=== PATIENT | female | born 1965 | race Caucasian/White ===

== ENCOUNTER 2019-11-24 00:42 | Emergency (ER) | payer SELFPAY ==
--- NOTE | 2019-11-24 04:47 | RADIOLOGY REPORT (SQ) ---
CLINICAL INDICATION: pain. . TECHNIQUE: Single view(s) were obtained of the right hip. AP pelvis COMPARISON: None. FINDINGS: No acute displaced fracture is identified of the hip. Alignment appears anatomic. Osteoarthritis. Surrounding soft tissues are unremarkable. IMPRESSION: No evidence of acute displaced fracture of the hip.
[2019-11-24] MEDS ORDERED: PREDNISONE 20 MG TABLET PO ONE (05:27)
[2019-11-24] MEDS ORDERED: HYDROCODONE/ACETAMINOPHEN 5-325 MG TABLET PO ONE (05:27)
[2019-11-24] MEDS ORDERED: HYDROCODONE/ACETAMINOPHEN 5-325 MG (6 TAB/ER DISP) PO PRN (05:27)
[2019-11-24 05:49] VITALS: BP 144/87
--- NOTE | 2019-11-24 06:13 | ER Document Report ---
Entered by BEN NASCIMENTO SCRIBE 11/24/19 0527 Acting as scribe for:ESTELITA VENTURA IV, MD ED General - General Chief Complaint: Hip Pain Stated Complaint: TAILBONE PAIN Time Seen by Provider: 11/24/19 05:12 Primary Care Provider: PAULA YOUNG MD [HONORARY] - Follow up as needed Mode of Arrival: Ambulatory Information source: Patient Notes: This 54 year old female patient presents to the ED today with complaints of right buttock pain that radiates down her RLE for the past x1.5 months. Patient states that the pain is worse with ambulation. Denies urinary or fecal incontinence. Denies paraesthesia to genital or perianal areas. - Related Data Allergies/Adverse Reactions: No Known Allergies Allergy (Unverified 11/24/19 01:45) Past Medical History - General Information source: Patient - Social History Smoking Status: Current Every Day Smoker Chew tobacco use (# tins/day): No Smoking Education Provided: No Frequency of alcohol use: None Drug Abuse: None Family History: Reviewed & Not Pertinent Patient has suicidal ideation: No Patient has homicidal ideation: No Review of Systems - Review of Systems Constitutional: No symptoms reported EENT: No symptoms reported Cardiovascular: No symptoms reported Respiratory: No symptoms reported Gastrointestinal: See HPI. denies: Fecal incontinence Genitourinary: See HPI. denies: Incontinence Female Genitourinary: No symptoms reported Musculoskeletal: See HPI Skin: No symptoms reported Hematologic/Lymphatic: No symptoms reported Neurological/Psychological: No symptoms reported -: Yes All other systems reviewed and negative Physical Exam - Vital signs Vitals: Temp Pulse Resp BP Pulse Ox 98.4 F 80 22 H 160/94 H 99 11/24/19 01:14 11/24/19 01:14 11/24/19 01:14 11/24/19 01:14 11/24/19 01:14 - General General appearance: Alert In distress: None - HEENT Head: Normocephalic, Atraumatic Eyes: Normal Pupils: PERRL - Respiratory Respiratory status: No respiratory distress Chest status: Nontender Breath sounds: Normal Chest palpation: Normal - Cardiovascular Rhythm: Regular Heart sounds: Normal auscultation Murmur: No Friction rub: No Gallop: None auscultated - Abdominal Inspection: Normal, Other - No pulsatile masses or aortic bruit Distension: No distension Bowel sounds: Normal Tenderness: Nontender - Abdomen soft Organomegaly: No organomegaly - Back Back: Normal, Nontender - Extremities General upper extremity: Normal inspection General lower extremity: Other - Positive straight leg raise on the right at 60 degrees - Neurological Neuro grossly intact: Yes Orientation: AAOx4 Willam Coma Scale Eye Opening: Spontaneous [place]am Coma Scale Verbal: Oriented [place] Coma Scale Motor: Obeys Commands [place] Coma Scale Total: 15 - Psychological Associated symptoms: Normal affect, Normal mood - Skin Skin Temperature: Warm Skin Moisture: Dry Skin Color: Normal Course - Re-evaluation Re-evalutation: 11/24/19 05:28 Results of ED MSE discussed with patient and patient's daughter. All questions were answered prior to discharge. Emergency signs and symptoms, reasons to return to the emergency department discussed with patient and patient's daughter. - Vital Signs Vital signs: Temp Pulse Resp BP Pulse Ox 97.5 F 65 14 144/87 H 99 11/24/19 05:45 11/24/19 05:45 11/24/19 05:45 11/24/19 05:45 11/24/19 05:45 - Diagnostic Test Radiology reviewed: Reports reviewed Discharge - Discharge Clinical Impression: Sciatica Qualifiers: Laterality: right Qualified Code(s): M54.31 - Sciatica, right side Condition: Stable Disposition: HOME, SELF-CARE Additional Instructions: Return to the Emergency Department without delay if any worse. HOME CARE INSTRUCTIONS & INFORMATION: Thank you for choosing us for your medical needs. We hope you're satisfied with the care you received. After you leave, you must properly care for your problem and, at the same time, observe its progress. Any condition can change. Some illnesses can change rapidly over hours or days. If your condition worsens, return to the Emergency Department or see your physician promptly. ABOUT YOUR X-RAYS AND EKG'S: If you had an EKG or X-rays taken, they have been read by the Emergency Physician. The X-rays and EKG's will also be read by a Radiologist or Ecological Risk Assessor within 24 hours. If discrepancies are noted, you will be notified by telephone. Please be certain the ED has a correct telephone number & address where you can be reached. Also, realize that some fractures or abnormalities do not show up on initial X-rays. If your symptoms continue, see your physician. ABOUT YOUR LABORATORY TEST: If you had laboratory tests, the results have been reviewed by the Emergency Physician. Some test results (for example cultures) may not be available for several days. You will be contacted if any test result shows you need additional treatment. Please be certain the ED has a correct telephone number and address where you can be reached. ABOUT YOUR MEDICATIONS: You will receive instructions on how to take your medicine on the prescription label you receive. Additional information may be provided by the Pharmacy. If you have questions afterwards, call the ED for clarification or further instructions. Some prescribed medications may cause drowsiness. Do not perform tasks such as driving a car or operating machinery without consulting your Pharmacist. If you feel you need a refill of pain medication, your condition will need re-evaluation. Please do not call for a refill of any medication. ABOUT YOUR SIGNATURE: Signature of this document acknowledges to followin. Understanding that you received emergency treatment and that you may be released before al medical problems are known or treated. Please be certain the ED has a correct phone number & address where you can be reached. 2. Acknowledgement that you will arrange for follow-up care as recommended. 3. Authorization for the Emergency Physician to provide information to your follow-up Physician in order to maximize your care. AT ANY TIME, IF YOUR SYMPTOMS CHANGE SIGNIFICANTLY OR WORSEN OR YOU DEVELOP NEW SYMPTOMS, RETURN TO THE EMERGENCY DEPARTMENT IMMEDIATELY FOR RE-EVALUATION. OUR GOAL IS TO PROVIDE EXCELLENT MEDICAL CARE! WE HOPE THAT WE HAVE MET YOUR EXPECTATIONS DURING YOUR EMERGENCY DEPARTMENT VISIT AND THAT YOU FEEL YOU HAVE RECEIVED EXCELLENT CARE! Sciatica Your symptoms suggest "sciatica." The pain of sciatica typically radiates down the leg. Numbness in the foot or calf may also occur. Sciatica is caused by irritation of the sciatic nerve or its branches. The irritation can be due to a herniated disk in the spine, swelling and inflammation in the muscles surrounding the sciatic nerve, or direct injury of the nerve itself. Most cases of sciatica will resolve with medical treatment. Bed rest is usually recommended initially. Surgery is only necessary when the condition will not improve with rest and antiinflammatory medication. Muscle relaxers are often given if muscle soreness is present. A CAT scan of the back may be performed if a herniated disk is suspected. Re-examination is necessary if you develop increasing numbness, localized weakness in the foot or ankle, or if the pain does not respond to rest. Prescriptions: Hydrocodone/Acetaminophen [Marion 5-325 mg Tablet] 1 tab PO Q6HP PRN #12 tablet PRN Reason: pain Prednisone [Deltasone 20 mg Tablet] 60 mg PO DAILY 4 Days #12 tablet Referrals: PAULA YOUNG MD [HONORARY] - Follow up as needed I personally performed the services described in the documentation, reviewed and edited the documentation which was dictated to the scribe in my presence, and it accurately records my words and actions.
== END 2019-11-24 05:49 | disposition home or self-care (01) ==
LOC: ER 00:42
DX: M54.31 Sciatica, right side (principal); F17.200 Nicotine dependence, unspecified, uncomplicated
CPT/HCPCS: 99283; 73502; J7512

== ENCOUNTER 2019-12-03 15:16 | Emergency (ER) | payer SELFPAY ==
[2019-12-03] MEDS ORDERED: KETOROLAC TROMETHAMINE 60 MG/2 ML SDV IM ONE ×2 (16:43→20:46)
[2019-12-03] MEDS ORDERED: NORMAL SALINE 1000 ML 1,000 ML IV ONE (16:45)
--- NOTE | 2019-12-03 16:48 | ER Document Report ---
ED Medical Screen (RME) - General Chief Complaint: Low Back Pain Stated Complaint: URINARY ISSUE Time Seen by Provider: 12/03/19 16:38 Notes: Patient is a 54-year-old female who presents the emergency department with the chief complaint of low back pain. Patient states that her symptoms started on Tuesday. She also states that she has a sharp, stabbing pain when she urinates. Patient has been on steroids and pain medication and states that her symptoms have only gotten worse after finishing her steroids. Last dose of steroids was on . The next day she ended up having urinary symptoms. Exam: Tenderness to left lower back. I have greeted and performed a rapid initial assessment of this patient. A comprehensive ED assessment and evaluation of the patient, analysis of test results and completion of medical decision making process will be conducted by an additional ED providers. - Related Data Allergies/Adverse Reactions: No Known Allergies Allergy (Verified 12/03/19 16:37) Past Medical History - Social History Chew tobacco use (# tins/day): No Frequency of alcohol use: None Drug Abuse: None Physical Exam - Vital signs Vitals: Temp Pulse Resp BP Pulse Ox 99.0 F 103 H 16 155/97 H 96 12/03/19 15:22 12/03/19 15:22 12/03/19 15:22 12/03/19 15:22 12/03/19 15:22 Course - Vital Signs Vital signs: Temp Pulse Resp BP Pulse Ox 99.0 F 103 H 16 155/97 H 96 12/03/19 15:22 12/03/19 15:22 12/03/19 15:22 12/03/19 15:22 12/03/19 15:22
[2019-12-03 17:02] LABS: APPEARANCE,URINE CLEAR; BILIRUBIN,URINE NEGATIVE (NEGATIVE); COLOR,URINE STRAW; GLUCOSE, URINE NEGATIVE (NEGATIVE); KETONES,URINE NEGATIVE (NEGATIVE); LEUKOCYTE ESTERASE,URINE MODERATE (NEGATIVE); NITRITE,URINE NEGATIVE (NEGATIVE); PROTEIN,URINE NEGATIVE (NEGATIVE); URINE SPECIFIC GRAVITY 1.004; UROBILINOGEN,URINE NEGATIVE mg/dL (<2.0)
[2019-12-03 17:20] LABS: ABSOLUTE EOSINOPHILS # (AUTO) 0.1 10^3/uL (0.0-0.6); ABSOLUTE LYMPHOCYTES (AUTO) 2.4 10^3/uL (0.5-4.7); ABSOLUTE MONOCYTES (AUTO) 0.8 10^3/uL (0.1-1.4); ABSOLUTE NEUT (AUTO) 8.9 10^3/uL (1.7-8.2); BASOPHILS % (AUTO) 0.4 % (0-2); EOSINOPHILS % (AUTO) 1.2 % (0-6); HEMATOCRIT 43.8 % (36.0-47.0); HEMOGLOBIN 14.9 g/dL (12.0-15.5); LYMPHOCYTES % (AUTO) 19.3 % (13-45); MEAN CORPUSCULAR HEMOGLOBIN 32.1 pg (27.0-33.4); MEAN CORPUSCULAR VOLUME 94 fl (80-97); MONOCYTES % (AUTO) 6.6 % (3-13); PLATELET COUNT 421 10^3/uL (150-450); RED BLOOD COUNT 4.65 10^6/uL (3.72-5.28); RED CELL DISTRIBUTION WIDTH 14.1 % (11.5-14.0); SEGMENTED NEUTROPHILS % (AUTO) 72.5 % (42-78); TOTAL CELLS COUNTED % (AUTO) 100 %; WHITE BLOOD COUNT 12.3 10^3/uL (4.0-10.5)
[2019-12-03 17:38] LABS: ALBUMIN 4.4 g/dL (3.5-5.0); ALKALINE PHOSPHATASE 109 U/L (38-126); ANION GAP 8 (5-19); ASPARTATE AMINO TRANSFERASE 21 U/L (14-36); BILIRUBIN,TOTAL 0.7 mg/dL (0.2-1.3); BLOOD UREA NITROGEN 8 mg/dL (7-20); CALCIUM 9.8 mg/dL (8.4-10.2); CARBON DIOXIDE 24 mmol/L (22-30); CHLORIDE 104 mmol/L (98-107); GLUCOSE 117 mg/dL (75-110); POTASSIUM 4.4 mmol/L (3.6-5.0); TOTAL PROTEIN 7.6 g/dL (6.3-8.2)
--- NOTE | 2019-12-03 17:41 | RADIOLOGY REPORT (SQ) ---
EXAM DESCRIPTION: CT ABD/PELVIS NO ORAL OR IV IMAGES COMPLETED DATE/TIME: 12/03/2019 5:06 pm REASON FOR STUDY: left flank/low back pain COMPARISON: 06/29/2009 TECHNIQUE: CT scan of the abdomen and pelvis performed without intravenous or oral contrast. Images reviewed with lung, soft tissue, and bone windows. Reconstructed coronal and sagittal MPR images revi ewed. All images stored on PACS. All CT scanners at this facility use dose modulation, iterative reconstruction, and/or weight based d osing when appropriate to reduce radiation dose to as low as reasonably achievable (ALARA). [facility]: Dose Right [facility]: CareDose [facility]: Dose Right [facility]: Teradose 4D [facility]: Smart Womai RADIATION DOSE: CT Rad equipment meets quality standard of care and radiation dose reduction techniq ues were employed. CTDIvol: 8.3 mGy. DLP: 502 mGy-cm. LIMITATIONS: None. FINDINGS: LOWER CHEST: Calcified granuloma left lower lobe, probably secondary to prior granulomato us disease. Very small pericardial effusion noted anteriorly. NON-CONTRASTED LIVER, SPLEEN, ADRENALS: Very small splenule, normal anatomic variant. Evaluation li mited by lack of IV contrast. No identified significant masses. PANCREAS: No masses. No peripancreatic inflammatory changes. GALLBLADDER: No identified stones by CT criteria. No inflammatory changes to suggest cholecystitis. RIGHT KIDNEY AND URETER: No suspicious masses. Assessment limited by lack of IV contrast. No signif icant calcifications. No hydronephrosis or hydroureter. LEFT KIDNEY AND URETER: No suspicious masses. Assessment limited by lack of IV contrast. No signifi cant calcifications. No hydronephrosis or hydroureter. AORTA AND RETROPERITONEUM: No aneurysm. No retroperitoneal masses or adenopathy. BOWEL AND PERITONEAL CAVITY: No obvious masses or inflammatory changes. No free fluid. APPENDIX: Normal. PELVIS, BLADDER, AND ABDOMINAL WALL: Stable small phleboliths in the pelvic region. As on the previ ous examination, the endometrial cavity is prominent in appearance and measures 2.6 cm in AP diameter . No free fluid. Bladder normal. BONES: The osseous structures are stable in appearance. OTHER: A prominent 1.7 cm in diameter lymph node lies between the left proximal common iliac artery and psoas muscle, axial image 62, series 3. Prominent left external chain iliac lymph nodes also not ed, axial image 83, series 3. IMPRESSION: 1. No evidence for hydronephrosis, hydroureter or renal calculi. 2. A prominent left common iliac chain lymph node and left external iliac chain lymph nodes. These findings are new since the previous examination dated 06/29/2009. Correlation suggested. 3. As on the prior examination dated 06/29/2009, the endometrial cavity is prominent in appearance. C orrelation with the patient's history suggested. COMMENT: Quality ID # [id number]: Final reports with documentation of one or more dose reduction techniques (e.g., Automated exposure control, adjustment of the mA and/or kV according to patient size, use of iterative reconstruction technique) TECHNICAL DOCUMENTATION: JOB ID: [id number] 2010 [employer]- All Rights Reserved Reading location - IP/workstation name: [email or web address]
--- NOTE | 2019-12-03 20:53 | ER Document Report ---
ED General - General Chief Complaint: Low Back Pain Stated Complaint: URINARY ISSUE Time Seen by Provider: 12/03/19 16:38 - HPI Notes: Chief complaint: Pain over coccyx and constipation History of present illness: 54-year-old postmenopausal female seen here approximately 10 days ago by another provider in the emergency department for low back pain with no history of trauma and was treated with oral steroids and narcotic analgesic. This provided transient relief of her discomfort. She is back in today saying that pain is returning. She describes this as principally over the area of the coccyx radiating intermittently into both hips. This is aggravated by straining to have a bowel movement. She notes that she has been chronically constipated for several years and this is gradually getting worse. She is not on any prescription medicine for this and has not seen a physician in many years. She is never had a colonoscopy. Her weight is stable. She denies any skin rashes. She denies any fever or chills. She has had some intermittent dysuria. She denies any acute motor symptoms. She denies any urinary incontinence. Patient denies any acute injury to her coccyx or lower back area. She specifically denies falling. She denies any past history of back problems or injuries. Patient is accompanied here today by her daughter. I have reviewed all the notes from the recent ER visit here. Patient is a 1 pack/day smoker. She denies alcohol consumption. 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 HENT: Negative for sore throat. Eyes: Negative for visual changes. Cardiovascular: Negative for chest pain. Respiratory: Negative for shortness of breath. Gastrointestinal: As per history of present illness. Genitourinary: As per history of present illness. Musculoskeletal: As per history of present illness. Skin: Negative for rash. Neurological: Negative for headaches, weakness or numbness. 10 point ROS negative except as marked above and in HPI. Physical Exam - Vital signs Vitals: Temp Pulse Resp BP Pulse Ox 99.0 F 103 H 16 155/97 H 96 12/03/19 15:22 12/03/19 15:22 12/03/19 15:22 12/03/19 15:22 12/03/19 15:22 - Notes Notes: GENERAL: Slender female approximately stated age who appears moderately uncomfortable. SKIN: Good turgor no rashes. HEAD: Normocephalic atraumatic. EYES: PERRLA. EOMI. Conjunctivae and sclerae clear. EARS: CANALS AND TMS CLEAR. NOSE: CLEAR. MOUTH: Moist mucosa. Good dentition. No stridor or edema. No drooling. NECK: Supple. No masses or thyromegaly. No adenopathy. Carotids 2+ without bruits. No JVD. BACK: Symmetrical with moderate tenderness over the area of the coccyx. There is no crepitus or step-off. There is no visible or palpable skin abscess on careful palpation of this area. CHEST: Respirations unlabored. Breath sounds clear and symmetrical. HEART: Regular rhythm. No murmur gallop or rub. ABDOMEN: Soft nontender without masses, organomegaly or rebound. Bowel sounds normally active. No bruits. GENITALIA: Deferred. EXTREMITIES: No edema. No calf tenderness. Cap refill less than 1.5 seconds. Dorsalis pedis and posterior tibial pulses 3+ and symmetrical. NEUROLOGICAL: GCS 15. Alert and oriented x3. Normal gait. Fluent speech. C ranial nerves II through XII intact. Sensorimotor and cerebellar normal. Normal tone. PSYCHIATRIC: Slightly flat affect. Course - Re-evaluation Re-evalutation: 12/03/19 20:58 I have given the patient some IM Toradol. Will put her on some oral indomethacin with food at home and oral MiraLAX. She needs to establish care with a primary care physician. She needs a colonoscopy which I can arrange as an outpatient. She may also need follow-up with a fire boat engineer. Current physical findings are most consistent with coccygodynia. She also has evidence of urinary tract infection. We will treat this with some oral Keflex. 12/03/19 21:00 12/03/19 21:07 Findings, clinical impression and plan of treatment have been discussed with patient/family. Understanding of current findings and recommendations has been acknowledged by them and there is agreement regarding disposition and follow-up. - Vital Signs Vital signs: Temp Pulse Resp BP Pulse Ox 99.0 F 103 H 16 155/97 H 96 12/03/19 15:22 12/03/19 15:22 12/03/19 15:22 12/03/19 15:22 12/03/19 15:22 - Laboratory Result Diagrams: 12/03/19 16:57 12/03/19 16:57 Laboratory results interpreted by me: 12/03/19 12/03/19 12/03/19 15:46 16:57 16:57 WBC 12.3 H RDW 14.1 H Absolute Neuts (auto) 8.9 H Sodium 135.7 L Glucose 117 H Ur Leukocyte Esterase MODERATE H - Diagnostic Test Radiology reviewed: Reports reviewed - Noncontrast CT abdomen/pelvis: Mild prominence of endometrial cavity and patient has some minimally enlarged left iliac lymph nodes present. No other significant abnormalities. Discharge - Discharge Clinical Impression: Coccydynia, Chronic constipation Condition: Stable Disposition: HOME, SELF-CARE Additional Instructions: Coccyx Injury Your painful tailbone may be due to an injury to the `coccyx', the bone at the end of the spine. While quite painful, this injury usually isn't serious. In general, this injury is treated with medication and resting for a few days. Once you are active again, you may find that a `donut' seat cushion (often used after delivering a baby) helps you sit more comfortably. Pain may be worsened by constipation. Expect about three or four weeks before you are painfree. You should take prescribed medication and follow-up with referral physician . You need to have further evaluation including a colonoscopy as we have discussed. Additionally you have evidence of a bladder infection today. Medications prescribed today include a medicine that is helpful for pain and inflammation, and medicine to improve your bowel movements and an antibiotic to treat your bladder infection. Follow-up with referral physician as discussed. You may return here for new or worsening symptoms as needed. Prescriptions: Indomethacin 50 mg PO TID 10 Days #30 capsule Cephalexin Monohydrate [Keflex 500 mg Capsule] 500 mg PO Q6H 5 Days capsule Polyethylene Glycol 3350 [Miralax] 1 cap PO DAILY #527 powder Referrals: [facility] [Provider Group] - Follow up as needed MIRYAM GILBERT MD [ACTIVE STAFF] - Follow up as needed
[2019-12-03 21:34] VITALS: BP 136/79
== END 2019-12-03 21:39 | disposition home or self-care (01) ==
LOC: ER 15:16
DX: M53.3 Sacrococcygeal disorders, not elsewhere classified (principal); K59.09 Other constipation; N39.0 Urinary tract infection, site not specified; R30.0 Dysuria; F17.200 Nicotine dependence, unspecified, uncomplicated
CPT/HCPCS: 99284; 96372; 36415; 87086; 85025; 80053; 81001; 74176; J1885

== ENCOUNTER 2020-05-05 08:09 | Emergency (ER) | payer MEDICAID, OTHER ==
[2020-05-05] MEDS ORDERED: RINGERS SOLUTION,LACTATED 1,000 ML IV ONE ×2 (08:51→10:45)
[2020-05-05] MEDS ORDERED: ONDANSETRON HCL INJ/PF 4 MG/2 ML SDV IV ONE (08:52)
--- NOTE | 2020-05-05 09:01 | ER Document Report ---
ED General - General Chief Complaint: General Weakness Stated Complaint: WEAKNESS Time Seen by Provider: 05/05/20 08:37 Primary Care Provider: HUNTER ALARCON MD [Primary Care Provider] - Follow up as needed Mode of Arrival: Wheelchair Information source: Patient, Relative Notes: Patient is a 54-year-old female is brought in emergency room by her daughter are being sent here by the oncology radiologist for weakness. Patient has a recently diagnosed history of cervical cancer stage III diagnosed in January 2020 started chemo and radiation treatments in March 2020. Patient went to [place] and saw oncologist but the name of Dr. Albert and then was referred to Dr. Covarrubias who was the one that ultimately recommended chemo and radiation treatments. Patient and daughter state that she is not able to eat or drink anything for the past several days. She denies have any current pain. Patient denies any shortness of breath or chest discomfort. She has had multiple bouts of diarrhea. She is here for weakness evaluation. Patient does smoke. TRAVEL OUTSIDE OF THE [place] IN LAST 30 DAYS: No - HPI Onset: Last week Onset/Duration: Gradual Quality of pain: Achy Severity: Moderate Pain Level: 3 Associated symptoms: denies: Nonproductive cough, Productive cough, Fever - Related Data Allergies/Adverse Reactions: cephalexin [From Keflex] Allergy (Verified 05/05/20 08:32) hydrocodone Allergy (Verified 05/05/20 08:32) acetaminophen [From Tylenol] Adverse Reaction (Verified 05/05/20 08:32) Past Medical History - General Information source: Patient, Relative - Social History Smoking Status: Current Every Day Smoker Cigarette use (# per day): Yes Smoking Education Provided: Yes Frequency of alcohol use: None Drug Abuse: None Lives with: Family Family History: Reviewed & Not Pertinent GI Medical History: Denies: Hx Gastritis, Hx Ulcer, Hx Colonoscopy Past Surgical History: Reports: Hx Section Review of Systems - Review of Systems Constitutional: See HPI, Chills, Malaise, Weakness EENT: No symptoms reported Cardiovascular: No symptoms reported Respiratory: No symptoms reported Gastrointestinal: See HPI, Diarrhea, Nausea, Vomiting Genitourinary: No symptoms reported Female Genitourinary: No symptoms reported Musculoskeletal: See HPI, Muscle pain Skin: No symptoms reported Hematologic/Lymphatic: No symptoms reported Neurological/Psychological: No symptoms reported -: Yes All other systems reviewed and negative Physical Exam - Vital signs Vitals: Temp Pulse Resp BP Pulse Ox 97.7 F 69 32 H 136/76 H 97 05/05/20 08:20 05/05/20 08:20 05/05/20 08:20 05/05/20 08:20 05/05/20 08:20 Interpretation: Normal, Hypertensive, Tachypneic - Notes Notes: PHYSICAL EXAMINATION: GENERAL: Patient is a well-nourished well-developed 54-year-old female no apparent distress but appears acutely ill. Patient displays moderate amount of systemic tremors on examination. HEAD: Atraumatic, normocephalic. EYES: Pupils equal round and reactive to light, extraocular movements intact, conjunctiva are normal. ENT: Examination upper airway show nasal mucosa be dry no frontal or maxillary sinus tenderness to palpation. Examination of the oropharynx shows moderate dryness throughout the entire oral mucosa. NECK: Normal range of motion, supple without lymphadenopathy LUNGS: Breath sounds clear to auscultation bilaterally and equal. No wheezes rales or rhonchi. HEART: Regular rate and rhythm without murmurs ABDOMEN: Examination patient's abdomen shows bowel sounds to be present all 4 quads. In the supine position patient's abdominal examination shows no tenderness to palpation in this position. Female : deferred Musculoskeletal: Normal range of motion, no pitting or edema. No cyanosis. NEUROLOGICAL: Normal speech, normal gait. Normal sensory, motor exams PSYCH: Normal mood, normal affect. SKIN: Decreased turgor response Course - Re-evaluation Re-evalutation: 05/05/20 15:40 I had originally discussed the case with Dr. Uribe who suggested since patient had allergies to the Rocephin/cephalosporins that we should go ahead with Levaquin x1. Given that patient's labs were depleted in the magnesium, potassium, calcium as well as a positive urinary tract infection and a low white count I contacted Dr. Cruz with Dr. Buchanan office of oncology. She was very helpful in guiding and suggested that if patient looked like she was improving that she would be better off at home because of her leukopenia. Patient r esponded very well to the 2 L bolus of LR as well as the magnesium and potassium supplement. Patient perked right up after the fluids went in and we feel that patient is safe for discharge home. Her daughter is here with her and agrees with this plan because he gets her out of the hospital setting. Dr. Cruz informed me that she would have her office contact her tomorrow to set up an appointment within the next 2 weeks. Patient has been instructed to stay ahead of her nausea and to keep fluids going. She is currently on Zofran and promethazine. The daughter states that she has been on Compazine as well which does not help. She will follow up with Dr. Covarrubias as described above. She has been also informed that should she start getting worse to return to ER for reevaluation. I once again counseled Dr. Uribe about patient's discharge antibiotic and he believes that the Cipro was her best option at this point so we will place her on 500 twice daily for 7 days. - Vital Signs Vital signs: Temp Pulse Resp BP Pulse Ox 97.7 F 69 17 136/76 H 99 05/05/20 08:20 05/05/20 08:20 05/05/20 11:13 05/05/20 08:20 05/05/20 11:13 - Laboratory Results Result Diagrams: 05/05/20 09:21 05/05/20 09:21 Laboratory Results Interpreted: 05/05/20 05/05/20 05/05/20 09:21 09:21 09:21 WBC 2.0 L RBC 2.67 L Hgb 9.2 L Hct 25.3 L MCH 34.6 H MCHC 36.4 H RDW 14.4 H Plt Count 68 L Seg Neuts % (Manual) 88 H Lymphocytes % (Manual) 8 L Abs Lymphs (Manual) 0.2 L Potassium 3.3 L BUN 21 H Est GFR ( Amer) 58 L Est GFR (MDRD) Non-Af 48 L Calcium 7.2 L Magnesium 0.7 L* Urine Protein 100 H Urine Glucose (UA) 50 H Urine Ketones 20 H Urine Blood SMALL H Urine Urobilinogen 2.0 H Ur Leukocyte Esterase LARGE H Critical Laboratory Results Reviewed: Yes Attending or Supervising Physician who Reviewed Labs: DESHAWN URIBE - low mag,ca,potassium, ua - Radiology Results Critical Radiology Results Reviewed: No Critical Results - EKG Interpretation by Me EKG shows normal: Sinus rhythm Rate: Normal Rhythm: NSR Discharge - Discharge Clinical Impression: Hypomagnesemia, Hypokalemia, Hypocalcemia Urinary tract infection Qualifiers: Urinary tract infection type: site unspecified Hematuria presence: without hematuria Qualified Code(s): N39.0 - Urinary tract infection, site not specified Leukopenia Qualifiers: Leukopenia type: neutropenia Neutropenia type: secondary to cancer chemotherapy Qualified Code(s): D70.1 - Agranulocytosis secondary to cancer chemotherapy; T45.1X5A - Adverse effect of antineoplastic and immunosuppressive drugs, initial encounter Condition: Stable Disposition: HOME, SELF-CARE Instructions: Urinary Tract Infection ([facility]), Hypokalemia ([facility]) Additional Instructions: Home and rest. As we discussed Dr. Covarrubias office will contact you in the next day or so set you up an appointment for approximately 2 weeks. As we discussed try to stay ahead of your nausea by taking your medication early and try to keep the fluids going. Do not just drink water because that helps washout your potassium and magnesium so you should drink other things included and try to maintain that diet as best you can. However should you spike a fever or you have worsening can addition her symptoms return to ER for reevaluation. Prescriptions: Ciprofloxacin HCl [Cipro 500 mg Tablet] 500 mg PO BID #10 tablet Promethazine HCl 12.5 mg PO Q6 PRN #20 tablet PRN Reason: Referrals: HUNTER ALARCON MD [Primary Care Provider] - Follow up as needed MOISES COVARRUBIAS MD [ACTIVE STAFF] - Follow up as needed
[2020-05-05 09:50] LABS: HEMATOCRIT 25.3 % (36.0-47.0); HEMOGLOBIN 9.2 g/dL (12.0-15.5); MEAN CORPUSCULAR HEMOGLOBIN 34.6 pg (27.0-33.4); MEAN CORPUSCULAR HGB CONC 36.4 g/dL (32.0-36.0); MEAN CORPUSCULAR VOLUME 95 fl (80-97); RED BLOOD COUNT 2.67 10^6/uL (3.72-5.28); RED CELL DISTRIBUTION WIDTH 14.4 % (11.5-14.0)
--- NOTE | 2020-05-05 09:53 | RADIOLOGY REPORT (SQ) ---
EXAM DESCRIPTION: CHEST SINGLE VIEW IMAGES COMPLETED DATE/TIME: 05/05/2020 9:35 am REASON FOR STUDY: weakness COMPARISON: None. FINDINGS: One-view chest AP portable upright. Lungs are slightly hyperinflated but generally clear allowing for calcified granuloma in the left bas e. No pneumothorax. Normal cardiomediastinal silhouette. Intact bones. TECHNICAL DOCUMENTATION: JOB ID: [id number] Reading location - IP/workstation name: [email or web address]
[2020-05-05 10:09] LABS: ALBUMIN 3.9 g/dL (3.5-5.0); ALKALINE PHOSPHATASE 89 U/L (38-126); ANION GAP 10 (5-19); ASPARTATE AMINO TRANSFERASE 29 U/L (14-36); BILIRUBIN,DIRECT 0.2 mg/dL (0.0-0.4); BILIRUBIN,TOTAL 0.9 mg/dL (0.2-1.3); BLOOD UREA NITROGEN 21 mg/dL (7-20); CALCIUM 7.2 mg/dL (8.4-10.2); CARBON DIOXIDE 28 mmol/L (22-30); CHLORIDE 99 mmol/L (98-107); GLUCOSE 101 mg/dL (75-110); POTASSIUM 3.3 mmol/L (3.6-5.0); TOTAL PROTEIN 6.6 g/dL (6.3-8.2)
[2020-05-05 10:27] LABS: ABSOLUTE LYMPHOCYTES# (MANUAL) 0.2 10^3/uL (0.5-4.7); ABSOLUTE MONOCYTES # (MANUAL) 0.1 10^3/uL (0.1-1.4); BASOPHILS % (MANUAL) 0 % (0-2); EOSINOPHILS % (MANUAL) 0 % (0-6); LYMPHOCYTES % (MANUAL) 8 % (13-45); MONOCYTES % (MANUAL) 4 % (3-13); SEGMENTED NEUTROPHILS % (MAN) 88 % (42-78); TOTAL CELLS COUNTED 100
[2020-05-05 10:37] LABS: ANISOCYTOSIS SLIGHT; POLYCHROMASIA SLIGHT
[2020-05-05] MEDS ORDERED: POTASSI CL 20 MEQ/50 ML RIDER 20 MEQ/50 ML RTUPB IV ONE (10:37)
[2020-05-05 10:38] LABS: OVALOCYTES SLIGHT; PLATELET COMMENT DECREASED
[2020-05-05 10:39] LABS: PLATELET COUNT 68 10^3/uL (150-450)
[2020-05-05 10:44] LABS: APPEARANCE,URINE SLIGHTLY-CLOUDY; BILIRUBIN,URINE NEGATIVE (NEGATIVE); COLOR,URINE YELLOW; GLUCOSE, URINE 50 mg/dL (NEGATIVE); KETONES,URINE 20 mg/dL (NEGATIVE); LEUKOCYTE ESTERASE,URINE LARGE (NEGATIVE); NITRITE,URINE NEGATIVE (NEGATIVE); PROTEIN,URINE 100 mg/dL (NEGATIVE)
[2020-05-05] MEDS ORDERED: POTASSIUM CHLORIDE 10 MEQ TABLET.ER PO ONE (10:52)
[2020-05-05] MEDS ORDERED: LEVOFLOXACIN 750 MG/D5W RTU 750 MG/150 ML RTUPB IV ONE (11:03)
[2020-05-05] MEDS: MAGNESIUM SULFATE/D5W 1 GM/100 ML RTUPB IV SCH ×2 (11:06→12:34)
--- NOTE | 2020-05-05 12:41 | EKG REPORT ---
SEVERITY:- NORMAL ECG - SINUS RHYTHM : Confirmed by: Kvein Stephen MD 05-May-2020 12:41:05
[2020-05-05] MEDS ORDERED: PANTOPRAZOLE SODIUM 40 MG VIAL IV ONE (13:40)
[2020-05-05] MEDS ORDERED: PROMETHAZINE HCL INJ 25 MG/1 ML VIAL IV ONE (16:07)
[2020-05-05 16:53] VITALS: BP 153/81
[2020-05-06 13:01] LABS: PATH REVIEW PATHOLOGIST REVIEWED
== END 2020-05-05 16:28 | disposition home or self-care (01) ==
LOC: ER 08:09
DX: E83.42 Hypomagnesemia (principal); E87.6 Hypokalemia; E83.51 Hypocalcemia; D70.1 Agranulocytosis secondary to cancer chemotherapy; N39.0 Urinary tract infection, site not specified; R53.1 Weakness; C53.9 Malignant neoplasm of cervix uteri, unspecified; R11.2 Nausea with vomiting, unspecified; R19.7 Diarrhea, unspecified; F17.210 Nicotine dependence, cigarettes, uncomplicated; Z79.899 Other long term (current) drug therapy; Z88.6 Allergy status to analgesic agent; Z88.3 Allergy status to other anti-infective agents
CPT/HCPCS: 93005; 99285; 96361; 96375; 96365; 96366; 96367; 36415; 87040; 87086; 83735; 82570; 85025; 80053; 81001; 71045; 93010; J3475; C9113; J2550; J2405; J7120; J1956